=== PATIENT | female | born 1985 | race African-American/Black ===

== ENCOUNTER 2024-09-03 10:39 | Emergency (ER) | payer OTHER ==
[2024-09-03 10:52] VITALS: BP 137/89; PULSE 69; RESP 18; TEMP 98.8; BMI 36.4
[2024-09-03] MEDS ORDERED: diphenhydrAMINE HCL 25 MG CAPSULE (FP) PO ONE (11:25)
[2024-09-03] MEDS ORDERED: FAMOTIDINE 20 MG TABLET ONE (11:25)
[2024-09-03] MEDS: diphenhydrAMINE HCL 25 MG CAPSULE (FP) PO ONE (11:29)
[2024-09-03] MEDS: FAMOTIDINE 20 MG TABLET PO ONE (11:29)
== END 2024-09-03 11:30 | disposition home or self-care (01) ==
LOC: JER 10:39
DX: L50.0 Allergic urticaria (principal)
CPT/HCPCS: 99283-25